=== PATIENT | female | born 1965 | race Caucasian/White ===

== ENCOUNTER 2018-06-14 19:56 | Emergency (ER) | END 2018-06-14 20:54 | disposition left against medical advice (07) ==

== ENCOUNTER 2018-10-02 01:16 | Emergency (ER) | payer OTHER ==
[~2018-10-02] VITALS: Ht 162.6 cm; Wt 82.6 kg
[~2018-10-02 01:16] MED LIST: HYDR-3498 PO; HYDR-4011 PO; IBUP800T48 PO
[2018-10-02 01:26] VITALS: Ht 162.6 cm; Wt 82.6 kg
[2018-10-02 02:10] VITALS: BP 145/99; PULSE 88; RESP 16
[2018-10-02] MEDS ORDERED: CARI350T29 PO (03:40)
[2018-10-02] MEDS ORDERED: LOSA100T15 PO (03:40)
[2018-10-02] MEDS ORDERED: MELO15TA30 PO (03:40)
[2018-10-02] MEDS ORDERED: RANI300C7 PO (03:40)
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
[2018-10-02] MEDS ORDERED: LOSA50TA14 PO (04:46)
[2018-10-02] MEDS ORDERED: IBUP-1542 PO (07:36)
== END 2018-10-02 08:21 | disposition home or self-care (01) ==
LOC: E/R 01:16
DX: R20.2 Paresthesia of skin (principal); T69.9XXA Effect of reduced temperature, unspecified, initial encounter; I10 Essential (primary) hypertension; F17.210 Nicotine dependence, cigarettes, uncomplicated; X31.XXXA Exposure to excessive natural cold, initial encounter; Z59.0 Homelessness; Z91.14 Patient's other noncompliance with medication regimen
CPT/HCPCS: 99283

== ENCOUNTER 2018-11-30 10:38 | Emergency (ER) | payer OTHER ==
[~2018-11-30] VITALS: Ht 162.6 cm; Wt 84.4 kg
[~2018-11-30 10:38] MED LIST changes: +CARI350T29 PO; -HYDR-3498 PO; -HYDR-4011 PO; +IBUP-1542 PO; -IBUP800T48 PO; +LOSA100T15 PO; +LOSA50TA14 PO; +MELO15TA30 PO; +RANI300C7 PO
[2018-11-30 10:41] VITALS: Ht 162.6 cm; Wt 84.4 kg
[2018-11-30] MEDS ORDERED: NAPR-985 PO (13:34)
[2018-11-30 14:26] VITALS: BP 158/87; PULSE 77; RESP 20
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
== END 2018-11-30 14:27 | disposition home or self-care (01) ==
LOC: FTE 10:38
DX: S09.90XA Unspecified injury of head, initial encounter (principal); I10 Essential (primary) hypertension; F17.210 Nicotine dependence, cigarettes, uncomplicated; R51 Headache; Y04.2XXA Assault by strike against or bumped into by another person, initial encounter
CPT/HCPCS: 70450; 70486; Z7502